=== PATIENT | female | born 1995 | race African-American/Black ===

== ENCOUNTER 2017-05-27 02:59 | Emergency (ER) | payer BC ==
[~2017-05-27] VITALS: Ht 167.6 cm; Wt 70.0 kg
[2017-05-27 03:08] VITALS: BP 128/80; PULSE 82; TEMP 37.3; Ht 167.6 cm; Wt 70.0 kg
[2017-05-27 03:17] VITALS: O2SAT 99
[2017-05-27] MEDS ORDERED: HYDR1CAP85 PO (03:26)
[2017-05-27] MEDS ORDERED: PRED20TA PO (03:26)
[2017-05-27] MEDS ORDERED: hydrOXYzine HCL 25 MG TAB PO STA (03:27)
--- NOTE | 2017-05-27 03:31 | EMERGENCY ROOM VISIT NOTE ---
History Report prepared by Kami: Abhijit Millard Under the Supervision of: Dr. Mindy Alexander M.D. First contact with patient: 03:14 Chief Complaint: SKIN PROBLEM Stated Complaint: ITCHY SKIN RASH History of Present Illness The patient is a 21 year old female who presents to the Emergency Room with complaints of worsening generalized allergic reaction beginning this week. She states that she has had a rash on her abdomen, back and extremities. She notes that she has seasonal allergies, and has had a lot of symptoms associated with them. The patient is on Zyrtec for her allergies. She denies any shortness of breath. 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 The patient denies eating anything abnormal today. She is on control. Source of History: patient Onset: This week Position: other (generalized) Quality: other (allergic reaction) Timing: worsening Associated Symptoms: No SOB Review of Systems See HPI for pertinent positives & negatives. A total of 10 systems reviewed and were otherwise negative. Past Medical & Surgical Medical Problems: (1) No Known Active Medical Problems Family History No pertinent family history stated. Social History Smoking Status: Never Smoker Marital Status: single Occupation Status: [email or web address] student Current/Historical Medications Scheduled Prednisone (Prednisone), 40 MG PO DAILY Scheduled PRN Hydroxyzine Pamoate (Vistaril), 25-50 MG PO Q6 PRN for ALLERGIC REACTION Allergies Coded Allergies: No Known Allergies (Unverified , 05/27/17) Physical Exam Vital Signs Date Time Temp Pulse Resp B/P (MAP) Pulse Ox O2 Delivery O2 Flow Rate FiO2 05/27/17 03:17 99 Room Air 05/27/17 03:08 37.3 82 20 128/80 93 Room Air Physical Exam Vital signs reviewed. General: Well-appearing female, in no significant distress. HEENT: No scleral icterus, PERRLA, neck supple. Atraumatic. No facial swelling , or perioral edema. Cardiovascular: Regular rate and rhythm, no extra sounds. Pulmonary: Clear to auscultation bilaterally, normal work of breathing. Abdomen: Soft, nontender, nondistended, positive bowel sounds. Musculoskeletal: Atraumatic, no peripheral edema. Neurologic: Patient awake alert and oriented x 3 Skin: Warm, dry. Diffuse sandpaper-like urticarial rash noted to the upper extremities, trunk and lower extremities. Medical Decision & Procedures Medications Administered Medications (Trade) Dose Ordered Sig/Mercedes Route Start Time Stop Time Status Last Admin Dose Admin Prednisone (PredniSONE TAB) 60 mg NOW STAT PO 05/27/17 03:22 05/27/17 03:24 DC 05/27/17 03:27 60 MG Hydroxyzine HCl (Vistaril Tab) 50 mg NOW STAT PO 05/27/17 03:27 05/27/17 03:28 DC 05/27/17 03:32 50 MG ED Course 0316: Past medical records reviewed. The patient was evaluated in room B6. A complete history and physical examination was performed. 0322: Ordered Prednisone Tab 60 mg PO. 0328: Upon reevaluation, the patient appeared to have improvement of her symptoms. I discussed findings with her. She verbalized agreement of the treatment plan. The patient was discharged home. Medical Decision Differential diagnosis: Etiologies such as allergic reaction, anaphylaxis, urticaria, Smith-Ty syndrome, toxic epidermal necrolysis, erythema multiforme, cellulitis, as well as others were entertained. This patient was evaluated and appeared to be in no significant distress. IV access was obtained and laboratory work was drawn. Patient was placed on the welcome center agent. She was given prednisone 60 mg orally and Vistaril 50 mg by mouth. Patient was discharged with a prescription for prednisone and Vistaril. She will follow-up with [facility]. Patient will return to the ER for worsening of symptoms or any medical concerns. Impression Primary Impression: Allergic reaction Scribe Attestation The scribe's documentation has been prepared under my direction and personally reviewed by me in its entirety. I confirm that the note above accurately reflects all work, treatment, procedures, and medical decision making performed by me. Departure Information Dispostion Home / Self-Care Prescriptions Prednisone (Prednisone) 20 Mg Tab 40 MG PO DAILY, #8 TAB Prov: Mindy Alexander M.D. 05/27/17 Hydroxyzine Pamoate (VISTARIL) 25 Mg Cap 25-50 MG PO Q6 Y for ALLERGIC REACTION, #30 CAP Prov: Mindy Alexander M.D. 05/27/17 Referrals No Doctor, Assigned (PCP) Forms HOME CARE DOCUMENTATION FORM, IMPORTANT VISIT INFORMATION, WORK / SCHOOL INSTRUCTIONS Patient Instructions My [facility] Additional Instructions Diagnosis: Allergic reaction Prednisone 40 mg daily for 4 more days. Vistaril 25-50 mg every 6 hours as needed for itching/rash Use a hypoallergenic soap/lotion. Follow up with S this week for reevaluation if symptoms persist. Return to the ED this week for worsening of symptoms or any medical concerns.
== END 2017-05-27 03:33 | disposition home or self-care (01) ==
LOC: C.EDB 03:01
DX: T78.40XA Allergy, unspecified, initial encounter (principal); X58.XXXA Exposure to other specified factors, initial encounter